=== PATIENT | female | born 1970 | race Caucasian/White ===

== ENCOUNTER → 2021-12-05 06:17 | Outpatient (CLI) | payer MEDICARE, OTHER, SELFPAY ==
[2021-12-04 18:41] LABS: Basophils # 0.1 K/mm3 (0-0.2); Basophils % 0.5 % (0.1-2.0); Eosinophils # 0.5 K/mm3 (0.0-0.4); Eosinophils % 2.9 % (0.1-12.0); Hematocrit 41.6 % (37.0-47.0); Lymphocytes # 2.7 K/mm3 (0.7-4.5); Mean Corpuscular HGB Conc 31.3 g/dL (31.8-35.4); Mean Corpuscular Hemoglobin 30.5 pg (27.0-31.2); Mean Corpuscular Volume 97.3 fl (81-99); Mean Platelet Volume 7.8 fl (7.4-10.4); Monocytes # 0.6 K/mm3 (0.1-1.0); Monocytes % 3.7 % (1.7-9.3); Neutrophils # 12.8 K/mm3 (1.8-7.8); Neutrophils % 76.8 % (37.0-80.0); Platelet Count 659 K/mm3 (142-424); Red Blood Count 4.27 M/mm3 (4.20-5.40); Red Cell Distribution Width 13.5 % (11.5-17.5); White Blood Count 16.7 K/mm3 (4.8-10.8)
[2021-12-04 18:45] LABS: MANUAL DIFFERENTIAL MANUAL DIFFERENTIAL (MANUAL DIFF)
[2021-12-04 19:01] LABS: Alanine Aminotransferase 21 U/L (12-78); Albumin Level 4.2 g/dl (3.5-5.0); Albumin/Globulin Ratio 1.5 (1.1-1.8); Alkaline Phosphatase 148 U/L (38-126); Aspartate Amino Transferase 32 U/L (14-36); Bilirubin,Total 0.4 mg/dl (0.2-1.3); Blood Urea Nitrogen 16 mg/dl (7-17); Calcium 9.8 mg/dl (8.4-10.2); Carbon Dioxide 19 mmol/L (22.0-30.0); Chloride 90 mmol/L (98-107); Estimated Glomerular Filt Rate 43 ml/min (>60); GFR (African American) 52 ML/MIN (>60); Globulin 2.8 g/dL (1.3-3.2); Glucose 131 mg/dl (74-100); Sodium 122 mmol/L (136-145); Uric Acid 4.4 mg/dl (2.5-6.2)
[2021-12-04 19:16] LABS: Free T4 (Free Thyroxine) 1.24 ng/dl (0.78-2.19)
[2021-12-04 19:21] LABS: Free Thyroxine Index 2.7 ug/dL (5.93-13.13); T4 (Thyroxine) 8.8 ug/dl (5.53-11.0); Triiodothryronine (T3) Uptake 31 % (23.5-40.5)
[2021-12-04 19:22] LABS: Erythrocyte Sedimentation Rate 16 mm/hr (0-30)
[2021-12-04 20:17] LABS: 25-OH Vitamin D, Total 58.1 ng/mL (30-100)
[2021-12-04 20:34] LABS: Vitamin B12 > 1000 pg/mL (239-931)
[2021-12-04 22:03] LABS: Lymphocytes % 20 % (10-50); Monocytes % 2 % (2-9); Neutrophils % 78 % (42-76); Total Cells Counted 100
[2021-12-04 22:04] LABS: Platelet Estimate Marked Increase
[2021-12-06 08:36] LABS: Testosterone,Total 152 ng/dL (4-50)
[2021-12-06 09:12] LABS: RA Latex Turbid. <10.0 IU/mL (<14.0)
[2021-12-07 16:09] LABS: Antinuclear Antibodies, IFA Negative (.)
[2021-12-08 13:08] LABS: Anti-Centromere B Antibodies <0.2 AI (0.0-0.9); Anti-DNA (DS) Ab Qn 1 IU/mL (0-9); Anti-Jo-1 <0.2 AI (0.0-0.9); Anti-Smith Antibody <0.2 AI (0.0-0.9); Antichromatin Antibodies <0.2 AI (0.0-0.9); Antiscleroderma-70 Antibodies <0.2 AI (0.0-0.9); RNP Antibodies 0.6 AI (0.0-0.9); Sjogren's Anti-SS-A <0.2 AI (0.0-0.9); Sjogren's Anti-SS-B <0.2 AI (0.0-0.9)
== END ==
PROVIDERS: PCP Internal Medicine Adolescent Medicine; Visit Provider Internal Medicine Adolescent Medicine
DX: R53.83 Other fatigue (principal); M12.9 Arthropathy, unspecified; E03.9 Hypothyroidism, unspecified; L68.0 Hirsutism; I10 Essential (primary) hypertension; E11.69 Type 2 diabetes mellitus with other specified complication; E66.9 Obesity, unspecified; E55.9 Vitamin D deficiency, unspecified
CPT/HCPCS: 80053; 82306; 82607; 84403; 84436; 84439; 84443; 84479; 84550; 85007; 85025; 85651; 86038; 86225; 86235; 86431

== ENCOUNTER 2022-06-17 17:26 | Emergency (ER) | payer OTHER, MEDICARE, SELFPAY ==
[2022-06-17 17:37] VITALS: BP 172/106; PULSE 96; RESP 18; TEMP 36.8; O2SAT 98; BMI 39.1
[2022-06-17 17:40] VITALS: PULSE 95; O2SAT 99
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
[2022-06-17 17:45] VITALS: PULSE 95; O2SAT 99
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
[2022-06-17 18:31] VITALS: BP 169/94; PULSE 88; RESP 18; O2SAT 99
[2022-06-17 18:59] VITALS: BP 166/81; PULSE 81; RESP 20; TEMP 36.8; O2SAT 99
== END 2022-06-17 19:31 | disposition home or self-care (01) ==
PROVIDERS: Emergency Provider Emergency Medicine; PCP Internal Medicine Adolescent Medicine
DX: S16.1XXA Strain of muscle, fascia and tendon at neck level, initial encounter (principal); V49.40XA Driver injured in collision with unspecified motor vehicles in traffic accident, initial encounter; E11.9 Type 2 diabetes mellitus without complications; I10 Essential (primary) hypertension; E07.9 Disorder of thyroid, unspecified; Z90.49 Acquired absence of other specified parts of digestive tract
CPT/HCPCS: 70450; 71045; 72125; 72128; 72131; 72170; 99285